=== PATIENT | male | born 1995 | race Two or more races ===

== ENCOUNTER 2017-03-30 23:32 | Emergency (ER) | payer OTHER ==
[~2017-03-30] VITALS: Ht 175.3 cm; Wt 81.6 kg
--- NOTE | 2017-03-31 00:23 | NUR ---
Patient discharged to home in stable conditon. Written and verbal after care instructions given. Patient verbalizes understanding of instructions. Stressed follow up for wound check or return to ER for worsening s/s.
== END 2017-03-31 00:24 | disposition home or self-care (01) ==
LOC: ER 23:43
DX: S61.412A Laceration without foreign body of left hand, initial encounter (principal); W45.8XXA Other foreign body or object entering through skin, initial encounter; Y93.89 Activity, other specified; Y99.8 Other external cause status; Y92.89 Other specified places as the place of occurrence of the external cause
CPT/HCPCS: 73130; A4217; A4663

== ENCOUNTER 2017-04-02 13:48 | Emergency (ER) | payer OTHER ==
[~2017-04-02] VITALS: Ht 180.3 cm; Wt 79.4 kg
--- NOTE | 2017-04-02 13:50 | NUR ---
MSE done by Dr. Pelayo at bedside.
--- NOTE | 2017-04-02 14:10 | NUR ---
Patient discharged to home in stable conditon. Written and verbal after care instructions given. Patient verbalizes understanding of instructions.
== END 2017-04-02 14:15 | disposition home or self-care (01) ==
LOC: ER 13:53
DX: S61.212D Laceration without foreign body of right middle finger without damage to nail, subsequent encounter (principal); X58.XXXD Exposure to other specified factors, subsequent encounter; Y92.89 Other specified places as the place of occurrence of the external cause; Y99.8 Other external cause status
CPT/HCPCS: 99281; A4663

== ENCOUNTER 2023-02-25 09:43 | Emergency (ER) | payer OTHER ==
[~2023-02-25] VITALS: Ht 175.3 cm; Wt 86.2 kg
[2023-02-25] MEDS ORDERED: IBUPROFEN 400 MG TABLET ONE (10:28)
[2023-02-25] MEDS ORDERED: IBUPROFEN 400 MG TABLET PO ONE (10:30)
--- NOTE | 2023-02-25 11:21 | NUR ---
Applied pre-made wrist splint, PMS intact afterwards. Gave pt d/c instructions, verbalized understanding.
== END 2023-02-25 11:27 | disposition home or self-care (01) ==
LOC: ER 09:54
DX: M25.532 Pain in left wrist (principal); X50.1XXA Overexertion from prolonged static or awkward postures, initial encounter; Y93.89 Activity, other specified; Y92.89 Other specified places as the place of occurrence of the external cause; Y99.8 Other external cause status
CPT/HCPCS: 73110; A4663